=== PATIENT | female | born 1970 | race Asian ===

== ENCOUNTER 2018-10-28 10:58 | Emergency (ER) | payer OTHER ==
[~2018-10-28] VITALS: Ht 152.4 cm; Wt 53.6 kg
[2018-10-28 11:52] LABS: BASOPHILS % 0.5 % (0.0-2.0); EOSINOPHILS % 1.4 % (0.0-5.0); HEMATOCRIT. 44.3 % (36.0-48.0); HEMOGLOBIN. 14.9 g/dL (12.0-16.0); LYMPHOCYTES % 22.5 % (20.0-50.0); MEAN CORPUSCULAR HEMOGLOBIN 27.8 pg (28.0-32.0); MEAN CORPUSCULAR VOLUME 82.7 fL (81.0-99.0); MEAN PLATELET VOLUME 7.7 fl (7.4-10.4); MONOCYTES % 7.4 % (2.0-8.0); NEUTROPHILS % 68.2 % (40.0-76.0); PLATELET 389 x1000/uL (130-400); RED BLOOD CELL COUNT 5.36 mill/uL (4.2-5.4); RED CELL DISTRIBUTION WIDTH 14.2 % (11.6-14.6)
[2018-10-28 11:54] LABS: CHLORIDE 104 mEq/L (98-107)
[2018-10-28 11:57] LABS: PARTIAL THROMBOPLASTIN TIME 30.5 sec (23.4-31.0)
[2018-10-28 12:02] LABS: HCG SCREEN NEGATIVE
[2018-10-28] MEDS ORDERED: LABETALOL 5MG/ML SYR 20 MG/4 ML SYRINGE IV ONE (12:15)
[2018-10-28 13:31] VITALS: BP 153/94
== END 2018-10-28 13:32 | disposition home or self-care (01) ==
LOC: ER 11:24
DX: I10 Essential (primary) hypertension (principal); R07.89 Other chest pain
CPT/HCPCS: 36415; 71045; 80053; 83880; 84484; 84703; 85025; 85610; 85730; 93005; 96374; 99284; J3490